=== PATIENT | female | born 1940 | race American Indian/Alaskan Native ===

== ENCOUNTER 2017-11-15 12:56 | Day surgery (SDC) | payer MEDICARE, BC ==
[2017-11-08 13:30] VITALS: BMI 24.6
[2017-11-15 13:25] LABS: BASO # 0.01 K/mm3 (0.0-2.0); BASO % 0.3 % (0.0-3.0); EOS # 0.1 (0.0-0.7); EOS % 1.5 % (1.5-5.0); GRAN # 2.19 (1.4-6.5); GRAN % 55.6 % (50.0-68.0); LYMPH # 1.4 (1.2-3.4); MEAN CELL VOLUME 91.1 fl (80.0-105.0); MEAN CORPUSCULAR HEMOGLOBIN 30.4 pg (25.0-35.0); MEAN CORPUSCULAR HGB CONC 33.3 g/dl (31.0-37.0); MEAN PLATELET VOLUME 9.9 fl (7.0-11.0); MONO # 0.3 (0.1-0.6); MONO % 6.6 % (1.0-6.0); RBC 4.61 10^6/uL (3.5-6.1); RED CELL DISTRIBUTION WIDTH 14.5 % (11.5-14.5); WHITE BLOOD COUNT 3.9 10^3/ul (4.5-11.0)
[2017-11-15 13:33] LABS: BLOOD UREA NITROGEN 14 mg/dL (7-21); CALCIUM 9.5 mg/dL (8.4-10.5); GFR AFRICAN-AMERICAN > 60; GFR NON-AFRICAN AMERICAN > 60
[2017-11-15 13:47] LABS: INR 1.07 (0.93-1.08); PARTIAL THROMBOPLASTIN TIME 27.6 Seconds (25.1-36.5); PROTHROMBIN TIME 12.3 SECONDS (9.4-12.5)
[2017-11-15] MEDS ORDERED: Midazolam 2 MG/2 ML VIAL ONE (15:28)
[2017-11-15] MEDS ORDERED: Lidocaine 1% Inj (20ml) ONE (15:49)
[2017-11-15] MEDS ORDERED: Oxycodone/Acetaminophen 5/325 mg Tab PO PRN (17:26)
[2017-11-15] MEDS ORDERED: Sodium Chloride 0.45% 1,000 ML IV SCH (17:30)
--- NOTE | 2017-11-15 17:51 | CT ---
PROCEDURE: CT guided left lower lobe lung biopsy. HISTORY: Left lower lobe lung mass. Several pulmonary nodules in lymphadenopathy. Evaluate for malignancy PHYSICIAN(S): Deven Christensen MD. TECHNIQUE: The relative risks and indications of the procedure were explained to the patient and consent obtained. The patient was placed prone on the CT scanner and preliminary images through the lung bases obtained. Conscious sedation and monitoring were provided throughout the procedure by a nurse. There is a 3.5 x 5 cm opacity in the left lower lobe medially contiguous with the descending thoracic aorta. A left posterior approach was selected and the area prepped and draped in the usual sterile fashion. 1% Xylocaine was used to anesthetize the skin and soft tissues. A 18 gauge guiding needle was advanced into the left lower lobe lung mass. Its position was confirmed with CT. Using coaxial technique, multiple core biopsies were obtained. The postprocedure images show no evidence of large pneumothorax or significant hemorrhage.. IMPRESSION: 1. CT-guided left lower lobe lung biopsy as described above.
[2017-11-15 18:46] VITALS: TEMP 98; O2SAT 98
--- NOTE | 2017-11-15 18:58 | RAD ---
HISTORY: Left lower lobe biopsy. Study performed 17:14. COMPARISON: 03/26/2017 chest x-ray FINDINGS: LUNGS: Left lower lobe infiltrate, left pleural effusion. PLEURA: No pneumothorax following CT directed biopsy. CARDIOVASCULAR: Normal. OSSEOUS STRUCTURES: No significant abnormalities. VISUALIZED UPPER ABDOMEN: Normal. OTHER FINDINGS: None. IMPRESSION: No adverse findings, specifically no pneumothorax following left lower lobe CT guided biopsy.
[2017-11-15 19:04] VITALS: BP 147/65; PULSE 72; RESP 18
== END 2017-11-15 19:05 | disposition home or self-care (01) ==
LOC: SDS 12:56
PROVIDERS: ATTEND Radiology Vascular & Interventional Radiology
DX: C34.32 Malignant neoplasm of lower lobe, left bronchus or lung (principal); Z87.891 Personal history of nicotine dependence
CPT/HCPCS: 32405; 36415; 71045; 77012; 80048; 85025; 85610; 85730; 88305; 88342; J2250; J2405; J3010; J7030

== ENCOUNTER 2017-12-28 07:22 | Day surgery (SDC) | payer MEDICARE, BC ==
[2017-11-08 13:30] VITALS: BMI 24.6
[2017-12-28 07:45] LABS: BASO # 0.03 K/mm3 (0.0-2.0); BASO % 0.6 % (0.0-3.0); EOS # 0.1 (0.0-0.7); EOS % 2.2 % (1.5-5.0); GRAN # 2.78 (1.4-6.5); GRAN % 54.8 % (50.0-68.0); HEMOGLOBIN 13.4 g/dL (12.0-16.0); LYMPH # 1.7 (1.2-3.4); LYMPH % 32.5 % (22.0-35.0); MEAN PLATELET VOLUME 10.1 fl (7.0-11.0); MONO # 0.5 (0.1-0.6); MONO % 9.9 % (1.0-6.0); RBC 4.46 10^6/uL (3.5-6.1); RED CELL DISTRIBUTION WIDTH 14.1 % (11.5-14.5); WHITE BLOOD COUNT 5.1 10^3/ul (4.5-11.0)
[2017-12-28 07:53] LABS: BLOOD UREA NITROGEN 17 mg/dL (7-21); CALCIUM 9.5 mg/dL (8.4-10.5); GFR AFRICAN-AMERICAN > 60; GFR NON-AFRICAN AMERICAN > 60
[2017-12-28 07:59] LABS: INR 0.97 (0.93-1.08); PARTIAL THROMBOPLASTIN TIME 27.2 Seconds (25.1-36.5); PROTHROMBIN TIME 11.2 SECONDS (9.4-12.5)
[2017-12-28] MEDS ORDERED: Lidocaine 2% Inj (20ml) ONE (09:44)
[2017-12-28] MEDS ORDERED: Midazolam 2 MG/2 ML VIAL ONE (09:45)
[2017-12-28] MEDS ORDERED: Sodium Chloride 0.45% 1,000 ML IV SCH (10:30)
[2017-12-28] MEDS ORDERED: Oxycodone/Acetaminophen 5/325 mg Tab PO PRN (10:30)
[2017-12-28 10:47] VITALS: TEMP 98.1
[2017-12-28 11:39] VITALS: BP 164/97; PULSE 83; RESP 18; O2SAT 99
--- NOTE | 2017-12-28 17:57 | VASCULAR ---
PROCEDURE: Ultrasound and fluoroscopic right internal jugular venous access port. CLINICAL HISTORY: Left lower lobe lung carcinoma.Venous port for chemotherapy. PHYSICIAN(S): Deven Christensen M.D. TECHNIQUE: The relative risks and indications of the procedure were explained to the patient and consent obtained. The patient was placed supine on the arteriogram table and the right neck and chest prepped and draped in the usual sterile fashion. Conscious sedation monitoring was provided throughout the procedure by a nurse. Antibiotics were given prior to the procedure. Under direct ultrasound guidance, the right internal jugular vein was punctured with a micro-puncture set. A 0.035 angled Glidewire was advanced into the IVC. A 4 cm incision was made below the right clavicle and the pocket blunted dissected. A 8 [place] single-lumen catheter, 21 cm long, was advanced to the SVC/RA junction. The catheter was trimmed and attached to the port. The port aspirates and injects easily. The port was placed in the pocket and closed in 2 layers. The patient tolerated the procedure well. IMPRESSION: Ultrasound and fluoroscopically placed right internal jugular venous access port.
== END 2017-12-28 12:30 | disposition home or self-care (01) ==
LOC: SDSVAS 07:22
PROVIDERS: ATTEND Radiology Vascular & Interventional Radiology
DX: C34.32 Malignant neoplasm of lower lobe, left bronchus or lung (principal)
CPT/HCPCS: 36415; 36561; 76937; 77001; 80048; 85025; 85610; 85730; 99152; 99153; C1769; C1788; J0690; J1644; J2250; J2405; J3010; J7030

== ENCOUNTER 2018-07-16 11:11 | Outpatient (CLI) | payer MEDICARE | END 2018-07-16 11:12 | disposition home or self-care (01) | LOC: OPLAB 11:11 | DX: D64.9 Anemia, unspecified (principal); E78.5 Hyperlipidemia, unspecified; E83.40 Disorders of magnesium metabolism, unspecified; M81.0 Age-related osteoporosis without current pathological fracture ==

== ENCOUNTER 2018-08-06 12:53 | Outpatient (CLI) | payer MEDICARE | END 2018-08-06 12:54 | disposition home or self-care (01) | LOC: OPLAB 12:53 ==

== ENCOUNTER 2018-08-27 13:35 | Outpatient (CLI) | payer MEDICARE | END 2018-08-27 13:36 | disposition home or self-care (01) | LOC: LAB 13:35 → OPLAB 13:36 | DX: D64.9 Anemia, unspecified (principal); E78.5 Hyperlipidemia, unspecified; E83.40 Disorders of magnesium metabolism, unspecified; M81.0 Age-related osteoporosis without current pathological fracture ==

== ENCOUNTER 2018-09-18 12:40 | Outpatient (CLI) | payer MEDICARE, BC | END 2018-09-18 12:41 | disposition home or self-care (01) | LOC: OPLAB 12:40 ==

== ENCOUNTER 2018-10-16 13:14 | Outpatient (CLI) | payer MEDICARE | END 2018-10-16 13:15 | disposition home or self-care (01) | LOC: OPLAB 13:14 ==

== ENCOUNTER 2018-11-12 13:01 | Outpatient (CLI) | payer MEDICARE | END 2018-11-12 13:02 | disposition home or self-care (01) | LOC: OPLAB 13:01 ==